=== PATIENT | female | born 1975 | race Caucasian/White ===

== ENCOUNTER 2019-01-31 05:55 | Emergency (ER) | payer BC ==
[2019-01-31 06:04] VITALS: BP 115/74
--- NOTE | 2019-01-31 07:02 | ER Document Report ---
HPI - HPI Time Seen by Provider: 01/31/19 06:14 Pain Level: 4 Context: Patient is a 43-year-old female that comes to the emergency department for 2 complaints. Chief complaint is sore throat that started yesterday, she reports painful swallowing but she denies congestion, sinus pain, cough, fever. She denies difficulty swallowing. She denies any obvious exposures. Second complaint is an area on her right lower abdomen where the skin became swollen, red, had a head, however patient states she already had this burst open and drained it is actually significantly improved. Patient is not a diabetic. She denies history of MRSA or abscesses. - CONSTITUTIONAL Constitutional: DENIES: Fever, Chills - EENT EENT: REPORTS: Sore Throat - REPRODUCTIVE Reproductive: DENIES: : Past Medical History - General Information source: Patient - Social History Smoking Status: Unknown if Ever Smoked Frequency of alcohol use: None Drug Abuse: None Lives with: Family Family History: Reviewed & Not Pertinent Patient has suicidal ideation: No Patient has homicidal ideation: No Renal/ Medical History: Denies: Hx Peritoneal Dialysis Musculoskeletal Medical History: Reports Hx Arthritis Psychiatric Medical History: Reports: Hx Anxiety, Hx Depression Surgical Hx: Negative - Immunizations Immunizations up to date: Yes Hx Diphtheria, Pertussis, Tetanus Vaccination: Yes Vertical Provider Document - CONSTITUTIONAL General Appearance: WD/WN, No Apparent Distress - INFECTION CONTROL TRAVEL OUTSIDE OF THE [place] IN LAST 30 DAYS: No - HEENT HEENT: Atraumatic, Normal ENT Exam - Unremarkable oropharyngeal exam with no noted erythema, swelling, or abnormality otherwise. Normal ears, nasal exam, sinuses., Normocephalic - NECK Neck: Normal Inspection - RESPIRATORY Respiratory: Breath Sounds Normal, No Respiratory Distress - CARDIOVASCULAR Cardiovascular: Regular Rate, Regular Rhythm - GI/ABDOMEN Gastrointestinal: Abdomen Soft, Abdomen Non-Tender - BACK Back: Normal Inspection - MUSCULOSKELETAL/EXTREMETIES Musculoskeletal/Extremeties: MAEW, FROM, Non-Tender - NEURO Level of Consciousness: Awake, Alert, Appropriate - DERM Integumentary: Warm, Dry. negative: Abscess - There is an erythematous warm area over the right lower abdomen, there is no induration or fluctuance. There is a nearby area which appears to be a resolved abscess as well but there is no tenderness or concerning finding with this particular area. Unremarkable otherwise. Course - Re-evaluation Re-evalutation: Patient's oral pharyngeal exam is actually very unremarkable. Strep is also negative. No lymphadenopathy, swelling, erythema. No fever. There is a small area of cellulitis over the right lower abdomen, there is a nearby area of the resolved abscess, there is no induration or fluctuance suggesting current abscess. Patient is very well-appearing. Unremarkable vital signs. Discussed with patient. Placed on Keflex, discussed expectations, follow-up, return precautions, patient states understanding and agreement. Stable at time of discharge. - Vital Signs Vital signs: Temp Pulse Resp BP Pulse Ox 98.2 F 98 16 115/74 98 01/31/19 06:02 01/31/19 06:02 01/31/19 06:02 01/31/19 06:02 01/31/19 06:02 Discharge - Discharge Clinical Impression: Sore throat Cellulitis Qualifiers: Site of cellulitis: other site Qualified Code(s): L03.818 - Cellulitis of other sites Condition: Stable Disposition: HOME, SELF-CARE Additional Instructions: The strep stress test negative. Your evaluation is consistent with a resolved abscess, there is some cellulitis (skin infection) over the area of the abdomen, take the Keflex antibiotic as prescribed to completion. Follow-up with primary care. Return if you worsen including spreading redness, fever, or any other concerning or worsening symptoms. Prescriptions: Cephalexin Monohydrate [Keflex 500 mg Capsule] 500 mg PO QID #16 capsule Cephalexin Monohydrate [Keflex 500 mg Capsule] 500 mg PO QID #12 capsule Referrals: PAVEL ZAMBRANO MD [Primary Care Provider] - Follow up as needed
[2019-01-31] MEDS ORDERED: CEPHALEXIN 500 MG CAPSULE PO ONE (07:10)
== END 2019-01-31 08:20 | disposition home or self-care (01) ==
LOC: ER 05:55
DX: J02.9 Acute pharyngitis, unspecified (principal); L03.311 Cellulitis of abdominal wall
CPT/HCPCS: 87070; 87880; 99282

== ENCOUNTER 2019-02-01 10:19 | Emergency (ER) | payer BC ==
--- NOTE | 2019-02-01 13:14 | ER Document Report ---
ED Medical Screen (RME) - General Chief Complaint: Skin Problem Stated Complaint: SORE THROAT Time Seen by Provider: 02/01/19 13:00 Primary Care Provider: PAVEL ZAMBRANO MD [Primary Care Provider] - Follow up as needed Mode of Arrival: Ambulatory Information source: Patient Notes: 43-year-old female presented to ED for complaint of sore throat and what appears to be a yeast rash under both breast into the right hip. We did do a VENESSA prep to the left breast and right hip we also sent the urine as she states she has frequent urinary tract infection the last time she had blood in her urine. She states they did a strep test yesterday which was negative there is a culture in progress. Patient has multiple other concerns that would need to be addressed by the provider who does her complete exam. I have greeted and performed a rapid initial assessment of this patient. A comprehensive ED assessment and evaluation of the patient, analysis of test results and completion of medical decision making process will be conducted by an additional ED providers. TRAVEL OUTSIDE OF THE [place] IN LAST 30 DAYS: No - Related Data Allergies/Adverse Reactions: No Known Allergies Allergy (Verified 02/01/19 12:40) Past Medical History - Social History Frequency of alcohol use: None Drug Abuse: None Renal/ Medical History: Denies: Hx Peritoneal Dialysis Musculoskeltal Medical History: Reports Hx Arthritis Psychiatric Medical History: Reports: Hx Anxiety, Hx Depression - Immunizations Immunizations up to date: Yes Hx Diphtheria, Pertussis, Tetanus Vaccination: Yes Physical Exam - Vital signs Vitals: Temp Pulse Resp BP Pulse Ox 98.0 F 103 H 20 116/77 98 02/01/19 10:34 02/01/19 10:34 02/01/19 10:34 02/01/19 10:34 02/01/19 10:34 Course - Vital Signs Vital signs: Temp Pulse Resp BP Pulse Ox 98.0 F 103 H 18 122/80 99 02/01/19 10:34 02/01/19 12:52 02/01/19 12:52 02/01/19 12:52 02/01/19 12:52 Doctor's Discharge - Discharge Referrals: PAVEL ZAMBRANO MD [Primary Care Provider] - Follow up as needed
[2019-02-01 13:38] LABS: AMORPHOUS SEDIMENT,URINE TRACE /HPF; APPEARANCE,URINE CLOUDY; BILIRUBIN,URINE NEGATIVE (NEGATIVE); COLOR,URINE YELLOW; GLUCOSE, URINE NEGATIVE (NEGATIVE); KETONES,URINE NEGATIVE (NEGATIVE); LEUKOCYTE ESTERASE,URINE NEGATIVE (NEGATIVE); NITRITE,URINE NEGATIVE (NEGATIVE); PROTEIN,URINE NEGATIVE (NEGATIVE); URINE SPECIFIC GRAVITY 1.014; UROBILINOGEN,URINE NEGATIVE mg/dL (<2.0)
--- NOTE | 2019-02-01 15:11 | ER Document Report ---
ED General - General Chief Complaint: Skin Problem Stated Complaint: SORE THROAT Time Seen by Provider: 02/01/19 13:00 Primary Care Provider: PAVEL ZAMBRANO MD [Primary Care Provider] - Follow up in 3-5 days Mode of Arrival: Ambulatory TRAVEL OUTSIDE OF THE [place] IN LAST 30 DAYS: No - HPI Notes: 43-year-old female to the emergency department with complaints of persistent sore throat and now a new evolving rash is under her breast and under her right side of her pannus. She states that over the past week she has been experiencing fatigue and sore throat. She states that she had a little area of an ingrown hair with surrounding redness as well to her right lower abdomen. She states that she was seen yesterday morning and had a negative strep test. She was placed on Keflex for the cellulitis. And she went home. She states that today her sore throat has persisted despite taking several doses of Keflex. And now she has an itchy rash that sort of jensen as well under her breasts and under her pannus. She has not taken anything else for sore throat. She denies any fevers. Denies any chest pain, nausea vomiting diarrhea, difficulty swall owing, drooling, facial swelling, or shortness of breath. - Related Data Allergies/Adverse Reactions: No Known Allergies Allergy (Verified 02/01/19 12:40) Past Medical History - General Information source: Patient - Social History Smoking Status: Former Smoker Frequency of alcohol use: None Drug Abuse: None Family History: Reviewed & Not Pertinent Patient has suicidal ideation: No Patient has homicidal ideation: No Renal/ Medical History: Denies: Hx Peritoneal Dialysis Musculoskeletal Medical History: Reports Hx Arthritis Psychiatric Medical History: Reports: Hx Anxiety, Hx Depression - Immunizations Immunizations up to date: Yes Hx Diphtheria, Pertussis, Tetanus Vaccination: Yes Review of Systems - Review of Systems Constitutional: Malaise. denies: Chills, Fever EENT: See HPI, Throat pain. denies: Throat swelling Cardiovascular: denies: Chest pain, Palpitations, Dyspnea, Syncope, Dizziness, Lightheaded Respiratory: denies: Cough, Short of breath Gastrointestinal: denies: Abdominal pain, Diarrhea, Nausea, Vomiting Genitourinary: No symptoms reported Musculoskeletal: denies: Back pain, Joint swelling, Muscle pain, Muscle stiffness, Neck pain, Deformity Skin: See HPI, Rash Neurological/Psychological: No symptoms reported -: Yes All other systems reviewed and negative Physical Exam - Vital signs Vitals: Temp Pulse Resp BP Pulse Ox 98.0 F 103 H 20 116/77 98 02/01/19 10:34 02/01/19 10:34 02/01/19 10:34 02/01/19 10:34 02/01/19 10:34 Interpretation: Normal - General General appearance: Appears well, Alert In distress: None - HEENT Head: Normocephalic - A still having 22 charts or so often is a relative term, Atraumatic Eyes: Normal Pupils: PERRL Ears: Normal External canal: Normal Tympanic membrane: Normal - and supposed to drive to [facility] and another thoughts, and plan Sinus: Normal Nasal: Normal Mouth/Lips: Normal - It really does Mucous membranes: Normal Pharynx: Erythema. No: Exudate, Peritonsillar abscess, Post nasal drainage, Retropharyngeal abscess, Tonsillar hypertrophy, Uvular edema - Mild erythema without exudates. There is no tonsillar hypertrophy. There is no drooling there is no trismus. There is no Navarro's angina. airway is grossly patent, Potential airway comprom. Neck: Normal, Supple. No: Lymphadenopathy - Respiratory Respiratory status: No respiratory distress Chest status: Nontender Breath sounds: Normal Chest palpation: Normal - Cardiovascular Rhythm: Regular Heart sounds: Normal auscultation Murmur: No - Abdominal Inspection: Normal Distension: No distension Bowel sounds: Normal Tenderness: Nontender Organomegaly: No organomegaly - Skin Skin Temperature: Warm Skin Moisture: Dry Skin irregularity: Rash - There is an erythematous rash to the skin underneath both breasts as well as the skin underneath the right side of her pannus. It is well demarcated and several areas with satellite lesions. This is most consistent with yeast. There is no superimposed infection. Noted area of c ellulitis to the right lower abdomen is improving and nontender to palpation. Course - Re-evaluation Re-evalutation: 02/01/19 Urinalysis and Accu-Chek glucose. Possible the Keflex is allowing an opportunity for yeast to grow on her body. We will send home with nystatin powder and also have her take a Diflucan at the end of her antibiotics. She is feeling better with her throat after the viscous lidocaine. We will send home with viscous lidocaine. Patient agrees with the plan urged to return if any worsening symptoms. PCP follow-up. - Vital Signs Vital signs: Temp Pulse Resp BP Pulse Ox 97.8 F 90 18 106/72 100 02/01/19 15:54 02/01/19 15:54 02/01/19 12:52 02/01/19 15:54 02/01/19 15:54 - Laboratory Laboratory results interpreted by me: 02/01/19 15:35 POC Glucose 114 H Discharge - Discharge Clinical Impression: Tinea corporis Pharyngitis Qualifiers: Pharyngitis/tonsillitis etiology: unspecified etiology Qualified Code(s): J02.9 - Acute pharyngitis, unspecified Condition: Stable Disposition: HOME, SELF-CARE Instructions: Sore Throat ([facility]) Additional Instructions: TAKE ALL MEDICINES PRESCRIBED. PUSH FLUIDS. REST. FOLLOW UP WITH PRIMARY CARE. USE TOPICAL ANTI YEAST MEDICINE WHILE TAKING KEFLEX AND THEN TAKE A DIFLUCAN AT THE END OF THE ANTIBIOTICS. Prescriptions: Fluconazole [Diflucan] 150 mg PO ONCE PRN #1 tablet PRN Reason: Nystatin [Mycostatin Topical Powder 15 gm] 1 applic TP BID #1 bottle Lidocaine HCl [Xylocaine 2% Viscous Soln 20 ml Udcup] 15 ml PO TID #1 bottle Referrals: PAVEL ZAMBRANO MD [Primary Care Provider] - Follow up in 3-5 days
[2019-02-01] MEDS ORDERED: LIDOCAINE 2% VISCOUS SOLN 20 ML UDCUP PO ONE (15:34)
[2019-02-01 15:57] VITALS: BP 106/72
== END 2019-02-01 15:57 | disposition home or self-care (01) ==
LOC: ER 10:19
DX: B35.4 Tinea corporis (principal); J02.9 Acute pharyngitis, unspecified; L03.311 Cellulitis of abdominal wall; R53.81 Other malaise; Z87.891 Personal history of nicotine dependence
CPT/HCPCS: 99283; 87086; 87210; 82962; 81001; J3490